=== PATIENT | male | born 1965 | race Caucasian/White ===

== ENCOUNTER 2018-08-29 04:46 | Inpatient (IN) ==
[2018-08-21 14:19] LABS: Basophils # (Auto) 0.1 K/mcL (0.0-0.3); Basophils % (Auto) 0.7 % (0.0-2.0); Eosinophils # (Auto) 0.2 K/mcL (0.0-0.7); Eosinophils % (Auto) 2.3 % (0.0-7.0); Granulocytes % (Auto) 56.2 % (38.0-78.0); Lymphocytes % (Auto) 33.8 % (15.5-49.0); Mean Corpuscular HGB Conc 32.3 g/dL (31.0-36.0); Mean Corpuscular Hemoglobin 27.1 pg (26.0-34.0); Monocytes # (Auto) 0.6 K/mcL (0.1-0.9); Platelet Count 259 K/mcL (140-440); RBC 5.39 M/mcL (4.50-5.90); Red Cell Distribution Width 15.6 % (11.5-14.5)
[2018-08-21 14:24] LABS: Appearance,Urine CLEAR; Bilirubin,Urine NEG (NEG); Color,Urine YELLOW; Glucose,Urine (UA) NEGATIVE (NEG); Leukocyte Esterase,Urine NEG /uL (NEG); Protein,Urine NEG (NEG); Specific Gravity,Urine 1.017 (1.000-1.035); Urine Blood NEG mg/dL (<0.03); Urobilinogen,Urine NEG (NEG)
[2018-08-21 14:34] LABS: Blood Urea Nitrogen 13 mg/dl (6-20)
[2018-08-29] MEDS ORDERED: SCOPOLAMINE 1 PATCH PATCH ONE (05:03)
[2018-08-29] MEDS ORDERED: 0.9 % SODIUM CHLORIDE 9 ML, KETOROLAC 30 MG, ROPIVACAINE HCL/PF 49.5 ML, EPINEPHrine 0.... IJ SCH (07:00)
[2018-08-29] MEDS ORDERED: CLINDAMYCIN 900 MG in DEXTROSE 5% IN WATER 50 ML IV SCH (07:00)
[2018-08-29] MEDS ORDERED: SCOPOLAMINE 1 PATCH PATCH TOPICAL ONE (07:00)
[2018-08-29] MEDS ORDERED: SUCCINYLCHOLINE 20 MG/ML ML IV ONE (07:40)
[2018-08-29] MEDS ORDERED: LIDOCAINE HCL/PF 100 MG/5 ML SYRINGE IV ONE (07:40)
[2018-08-29] MEDS ORDERED: PROPOFOL 200 MG/20 ML VIAL IV ONE (07:40)
[2018-08-29] MEDS ORDERED: DEXAMETHASONE 10 MG/ML VIAL IV ONE (07:40)
[2018-08-29] MEDS ORDERED: MIDAZOLAM 5 MG/5 ML VIAL IV ONE (07:40)
[2018-08-29] MEDS ORDERED: PHENYLEPHRINE 10 MG/ML VIAL IV ONE (07:40)
[2018-08-29] MEDS ORDERED: ROPIVACAINE HCL/PF 20 ML VIAL IJ ONE (07:40)
[2018-08-29] MEDS ORDERED: KETAMINE 100 MG/ML ML IV ONE (07:40)
[2018-08-29] MEDS ORDERED: TRANEXAMIC ACID 1,000 MG/10 ML VIAL IV ONE (07:40)
[2018-08-29] MEDS ORDERED: fentaNYL 100 MCG/2 ML VIAL IV ONE (07:40)
[2018-08-29] MEDS ORDERED: ONDANSETRON 4 MG/2 ML VIAL IV ONE (07:40)
[2018-08-29] MEDS ORDERED: GENTAMICIN SULFATE 800 MG/20 ML VIAL IR ONE (08:24)
[2018-08-29] MEDS ORDERED: HYDROmorphone 2 MG/ML VIAL IV PRN (08:49)
[2018-08-29] MEDS ORDERED: diphenhydrAMINE 50 MG/ML VIAL IV PRN (08:49)
[2018-08-29] MEDS ORDERED: MEPERIDINE 25 MG/ML SYRINGE IV PRN (08:49)
[2018-08-29] MEDS ORDERED: ONDANSETRON 4 MG/2 ML VIAL IV PRN ×2 (08:49→09:55)
[2018-08-29] MEDS ORDERED: METOPROLOL TARTRATE 5 MG/5 ML VIAL IV PRN (08:49)
[2018-08-29] MEDS ORDERED: METHOCARBAMOL 1,000 MG/10 ML VIAL IV PRN (08:49)
[2018-08-29] MEDS ORDERED: ePHEDrine 50 MG/ML AMPUL IV PRN (08:49)
[2018-08-29] MEDS ORDERED: IPRATROPIUM/ALBUTEROL 3 ML AMPUL.NEB NEB PRN (08:49)
[2018-08-29] MEDS ORDERED: FLUMAZENIL 0.1 MG/ML ML IV PRN (08:49)
[2018-08-29] MEDS ORDERED: PROMETHAZINE 25 MG/ML VIAL IV PRN (08:49)
[2018-08-29] MEDS ORDERED: ACETAMINOPHEN 1,000 MG/100 ML BOTTLE IV ONE (08:49)
[2018-08-29] MEDS ORDERED: NALOXONE HCL 0.4 MG/ML VIAL IV PRN (08:49)
[2018-08-29] MEDS ORDERED: ATROPINE SULFATE 0.4 MG/ML VIAL IV PRN (08:49)
[2018-08-29] MEDS ORDERED: LACTATED RINGERS 1,000 ML IV SCH (09:00)
[2018-08-29] MEDS ORDERED: BENZOCAINE/MENTHOL 1 LOZENGE PO PRN (09:55)
[2018-08-29] MEDS ORDERED: TRANEXAMIC ACID 1,000 MG/10 ML VIAL IV SCH (09:55)
[2018-08-29] MEDS ORDERED: FLEETS ADULT ENEMA PR PRN (09:55)
[2018-08-29] MEDS ORDERED: BISACODYL 10 MG SUPP.RECT PR PRN (09:55)
[2018-08-29] MEDS ORDERED: POLYETHYLENE GLYCOL 3350 17 GM PACKET PO PRN (09:55)
[2018-08-29] MEDS ORDERED: MAGNESIUM HYDROXIDE 30 ML ORAL.SUSP PO PRN (09:55)
[2018-08-29] MEDS ORDERED: HYDROcodone/APAP 10/325MG TABLET PO PRN (09:59)
[2018-08-29] MEDS ORDERED: ceFAZolin 1 GM VIAL IV SCH (10:00)
--- NOTE | 2018-08-29 10:01 | Brief Operative Note ---
Date of procedure: 08/29/18 Pre-op diagnosis: r knee DJD Post-op diagnosis: same Procedure: right TKR Grafts/Implants: Yes (triathlon knee) Anesthesia: GETA Complications: none Surgeon: Ant Ceron [employer] Teacher: Juan A Ocampo Estimated blood loss (cc): 50 Tourniquet Time (Minutes): 84 Specimens Removed/Pathology: none sent Condition: stable Disposition: PACU
[2018-08-29] MEDS: fentaNYL 100 MCG/2 ML VIAL IV PRN ×2 (10:35→11:00)
--- NOTE | 2018-08-29 11:01 | Operative Note ---
DATE OF OPERATION: 08/29/2018 PREOPERATIVE DIAGNOSIS: Degenerative joint disease of the right knee. POSTOPERATIVE DIAGNOSIS: Degenerative joint disease of the right knee. OPERATION: Osei assisted total knee replacement using the Weeleo triathlon knee. SURGEON: Ant Ceron MD PAPERHANGER PIPE: Juan A Ocampo PA-C. ANESTHESIA: General done by Lucy Lucia CRNA. ESTIMATED BLOOD LOSS: 50 mL TOURNIQUET TIME: 84 minutes. SUMMARY OF PROCEDURE: General anesthesia was attained. The right leg was prepped and draped. A tourniquet was put up to 275 mmHg. The first step in the process was placing the arrays. Two stab incisions were made proximally in the femur parallel to each other and the pins placed and then the array. The same type of array was placed through stab incisions in the tibia. I then used the approach for the femur. An incision was made from the quadriceps to the tibial tubercle. It was taken down through the subcutaneous fat. A mid vastus split was made and the medial retinaculum was released. The patella was mobilized laterally. The anterior soft tissue was elevated. The medial and lateral menisci were resected. The checkpoints were placed, one in the femur and one in the tibia. We then did a verification of landmarks by rotating the hip internally and then checking the medial and lateral malleoli. I then did my 40 point checks for verification on the femur and on the tibia. Using the Osei robot I then made the appropriate cuts protecting the surrounding soft tissue, especially the patellar tendon on the tibia and then on the femur. The femur sized to a 4. We balanced the flexion and extension gaps using the Osei system prior to cutting. The patella was everted. A 10 mm measured resection was done taking the patella down from 23 mm to 13 mm. The patella sized to a 32. The peg holes were made in the femur during trialing. The best combination of stability was with a 9 mm insert. The bone surfaces were thoroughly irrigated. The components were cemented in. Excess cement was removed using a cebatome. After the cement had hardened and all the cement was removed I rinsed the knee throughout using IrriSept. The tourniquet was let down and all bleeding points were coagulated. The quadriceps split and medial retinaculum split was closed with a [id number] and simple sutures of #2 FiberWire. The subcutaneous tissue was closed with 2-0 Monocryl and the skin was closed with Dura-Miller. A sterile compressive dressing was applied. The sponge and needle count was correct. The patient tolerated the procedure well and was taken to the recovery room in stable condition. [id number] Job ID: [id number] Doc ID: [id number] Ant Ceron MD
[2018-08-29] MEDS: 0.9 % SODIUM CHLORIDE 1,000 ML IV SCH ×2 (11:33→21:51)
[2018-08-29] MEDS: HYDROcodone/APAP 10/325MG TABLET PO PRN ×3 (12:00→21:52)
--- NOTE | 2018-08-29 13:09 | XRay Report ---
CLINICAL INFORMATION: Post-op total knee. COMPARISON: Preoperative x-ray 04/04/2017 FINDINGS: Total knee prostheses anatomically aligned. No osseous abnormality. Periarticular soft tissue swelling and gas seen. IMPRESSION: Negative Interpreted and Authenticated by: Yuniel Rico 08/29/18
[2018-08-29] MEDS: 0.9 % SODIUM CHLORIDE 10 ML SYRINGE IV SCH ×2 (14:15→23:50)
[2018-08-29] MEDS: DIAZEPAM 5 MG TABLET PO SCH ×2 (16:12→21:06)
[2018-08-29] MEDS: CLINDAMYCIN 900 MG in DEXTROSE 5% IN WATER 50 ML IV SCH ×2 (16:12→23:50)
[2018-08-29] MEDS ORDERED: SENNOSIDES 1 TABLET PO SCH (21:00)
[2018-08-29] MEDS: DOCUSATE SODIUM 100 MG CAPSULE PO SCH (21:07)
[2018-08-29] MEDS: ASPIRIN 325 MG ENTERIC COATED TABLET PO SCH (21:07)
[2018-08-30] MEDS: HYDROcodone/APAP 10/325MG TABLET PO PRN ×3 (02:16→11:04)
[2018-08-30] MEDS: 0.9 % SODIUM CHLORIDE 10 ML SYRINGE IV SCH (04:26)
[2018-08-30 06:22] LABS: Basophils # (Auto) 0 K/mcL (0.0-0.3); Basophils % (Auto) 0.1 % (0.0-2.0); Eosinophils # (Auto) 0 K/mcL (0.0-0.7); Eosinophils % (Auto) 0 % (0.0-7.0); Granulocytes % (Auto) 85.4 % (38.0-78.0); Lymphocytes # (Auto) 1.3 K/mcL (1.5-4.8); Lymphocytes % (Auto) 9.2 % (15.5-49.0); Mean Cell Volume 84.8 fL (80.0-100.0); Mean Corpuscular HGB Conc 32.7 g/dL (31.0-36.0); Mean Corpuscular Hemoglobin 27.7 pg (26.0-34.0); Monocytes # (Auto) 0.8 K/mcL (0.1-0.9); Monocytes % (Auto) 5.3 % (1.0-12.0); Platelet Count 217 K/mcL (140-440); RBC 4.38 M/mcL (4.50-5.90); Red Cell Distribution Width 15.6 % (11.5-14.5)
[2018-08-30] MEDS: 0.9 % SODIUM CHLORIDE 1,000 ML IV SCH (06:24)
[2018-08-30] MEDS: DIAZEPAM 5 MG TABLET PO SCH (07:24)
[2018-08-30] MEDS: ASPIRIN 325 MG ENTERIC COATED TABLET PO SCH (07:24)
[2018-08-30] MEDS: DOCUSATE SODIUM 100 MG CAPSULE PO SCH (07:24)
--- NOTE | 2018-08-30 08:14 | Discharge Summary ---
Providers - Providers Patient information: Note initiated : 08/30/18 at 8:10 am Service Date, if different from initiated Date: [] Patient: Ke Boles 53 y/o M admitted on 08/29/18 for Right Robotic Total Knee Arthroplasty. Chief Complaint: [] Date of admission: 08/29/18 Discharge date: 08/30/18 Attending physician: Ant Ceron Hospitalization Hospital course: total knee right 08/29. No complications Discharge diagnosis: total knee status replacement Procedures: tkr Complications: none Exam - Exam Clean and dry: Yes Weight bearing status: full Ortho Discharge - TKA - Patient Instructions Diet: Regular Diet Activity: activity as tolerated Total Knee Protocol: For Total Knee: Start ROM AMEENA with stationary bike or rocking chair. Work on gaining full extension of knee. Posterior dislocation precautions provided. Hip abductor strengthening and gait training instructions provided. Apply Cryocuff as instructed. Dressing Care: May shower in 3 days - Follow Up Plan Follow Up Appointments: Loretta Marie PA-C [Physician Fur Mixer] - 09/13/18 10:50 am Disposition: Home, Self-Care Prognosis: Good Rehab Potential: Good I certify that the patient requires SNF services: No Overall status at discharge: patient is progressing back to baseline - Orders For Discharge Prescriptions: HYDROcodone/APAP 10/325MG [Gurdon 10-325Mg] 1 - 2 tab PO Q6H PRN #40 tab PRN Reason: Pain Level 3-6 Pending Studies Resuscitation Status Full Code Diet Regular Diet Start Marilee Nov 1 Lunch Hydrocodone Bitart/Acetaminophen (Gurdon 10/325mg) 0 tab PO Q4HP PRN PRN Reason: PAIN LEVEL 3-6 Last Admin: 08/30/18 07:01 Dose: 2 tab Admin: 08/30/18 02:16 Dose: 2 tab Admin: 08/29/18 21:52 Dose: 2 tab Admin: 08/29/18 17:28 Dose: 2 tab Admin: 08/29/18 12:00 Dose: 2 tab Aspirin (Ecotrin) 325 mg PO BID [facility] Last Admin: 08/30/18 07:24 Dose: 325 mg Admin: 08/29/18 21:07 Dose: 325 mg Diazepam (Valium) 5 mg PO TID [facility] Last Admin: 08/30/18 07:24 Dose: 5 mg Admin: 08/29/18 21:06 Dose: 5 mg Admin: 08/29/18 16:12 Dose: Not Given Docusate Sodium (Colace) 100 mg PO BID [facility] Last Admin: 08/30/18 07:24 Dose: 100 mg Admin: 08/29/18 21:07 Dose: 100 mg Hydrochlorothiazide (Oretic) 12.5 mg PO DAILY [facility] Last Admin: 08/30/18 07:24 Dose: 12.5 mg Sodium Chloride (Sodium Chloride 0.9%) 1,000 mls @ 100 mls/hr IV .Q10H [facility] Last Admin: 08/30/18 06:24 Dose: Not Given Admin: 08/29/18 21:51 Dose: 100 mls/hr Infusion: 08/29/18 21:33 Dose: 100 mls/hr Admin: 08/29/18 11:33 Dose: 100 mls/hr Lisinopril (Zestril) 20 mg PO DAILY [facility] Last Admin: 08/30/18 07:24 Dose: 20 mg Senna (Senokot) 2 tab PO HS [facility] Last Admin: 08/29/18 21:07 Dose: 2 tab Sodium Chloride (Saline Flush) 10 ml IV Q8 [facility] Last Admin: 08/30/18 04:26 Dose: Not Given Admin: 08/29/18 23:50 Dose: Not Given Admin: 08/29/18 14:15 Dose: Not Given Vitamin D (Vitamin D3) 1,000 unit PO DAILY [facility] Last Admin: 08/30/18 07:24 Dose: 1,000 unit Shift Summary 08/30/18 04:05 Shift Summary by Aaron Rock Pt has rested on & off tonight. RT knee pain well controlled w/ PO Gurdon 10 (2 ) PO & cryo-cuff - last dose Gurdon given @ 0215. He has been up in [place] AMB 200 ' - gait stable w/ FWW & SBA - also AMB to & from [place]. Nimesh wrap RT knee - C,D, I. NS infusing to his LT wrist @ 100ml/hr. VS - WNL on R.A. w/ B/P running sl low. CPM on x2 tonight - currently on @ 0-60. Pt required straight cath @ 1700 - he has since voided QS per urinal - PVR's 45ml & 26ml - no further PVR required. Pt is A&O x4, calm, pleasant, & cooperative. Initialized on 08/30/18 04:05 - END OF NOTE
[2018-08-30] MEDS ORDERED: VITAMIN D3 1,000 UNIT TABLET PO SCH (09:00)
[2018-08-30] MEDS ORDERED: LISINOPRIL 20 MG TABLET PO SCH (09:00)
[2018-08-30] MEDS ORDERED: HYDROCHLOROTHIAZIDE 12.5 MG CAPSULE PO SCH (09:00)
== END 2018-08-30 11:27 | disposition home or self-care (01) | DRG 470 ==
LOC: MEDSUR 04:46
PROVIDERS: ADMIT Orthopaedic Surgery Foot and Ankle Surgery; ATTEND Orthopaedic Surgery Foot and Ankle Surgery
CPT/HCPCS: 62322; 97161; C1713; C1776; J0131; J0330; J1100; J1580; J2001; J2250; J2370; J2405; J2795; J3010; J7030; J7040; J7060; J7120